=== PATIENT | female | born 1960 | race Caucasian/White ===

== ENCOUNTER 2016-04-07 17:30 | Emergency (ER) | payer OTHER ==
[~2016-04-07] VITALS: Ht 154.9 cm; Wt 57.3 kg
[~2016-04-07 17:30] MED LIST: ALLOPURINOL100 MG PO; ASPIR 8181 M1; ASPIRIN81 M2 PO; Aspirin E.C. PO; DOXYCYCLINE HY100 MG PO; FENTANYL1 EAC4 TD; FLONASE16 G1 BOTH NARES; FLUOXETINE HCL20 MG PO; KEFLEX500 MG PO; LYRICA100 MG PO; LYRICA50 MG PO; MORPHINE SULFAT15 M1 PO; Medrol Dosepak PO; NORTRIPTYLINE H25 MG PO; PERCOCET 10/1 TABLET PO; PLAVIX75 MG; PLAVIX75 MG PO; PRAVACHOL10 MG PO; PROzac PO; TESSALON PERLE100 MG PO; TOPAMAX100 MG PO; TOPAMAX25 MG PO; Topamax PO; VOLTAREN75 MG PO; WELLBUTRIN75 MG PO; Wellbutrin PO; ZITHROMAX250 MG PO; ZYLOPRIM100 MG PO; Zyloprim PO
[2016-04-07] MEDS ORDERED: ZONTIVITY2.08 MG PO (17:53)
[2016-04-07] MEDS ORDERED: ULTRAM50 MG PO (19:09)
[2016-04-07 19:45] VITALS: BP 155/81
== END 2016-04-07 19:45 | disposition home or self-care (01) ==
LOC: EME 17:30 → EXP 17:30
DX: S20.212A Contusion of left front wall of thorax, initial encounter (principal); S00.83XA Contusion of other part of head, initial encounter; Y04.2XXA Assault by strike against or bumped into by another person, initial encounter; I73.9 Peripheral vascular disease, unspecified; Z79.02 Long term (current) use of antithrombotics/antiplatelets; Z79.82 Long term (current) use of aspirin; G89.29 Other chronic pain; Z79.891 Long term (current) use of opiate analgesic; E78.00 Pure hypercholesterolemia, unspecified; F17.200 Nicotine dependence, unspecified, uncomplicated
CPT/HCPCS: 71020; 99281; 99284

== ENCOUNTER 2016-10-05 11:21 | Emergency (ER) | payer OTHER ==
[~2016-10-05] VITALS: Ht 154.9 cm; Wt 62.0 kg
[~2016-10-05 11:21] MED LIST changes: +ULTRAM50 MG PO; +ZONTIVITY2.08 MG PO
[2016-10-05 12:06] LABS: HEMATOCRIT 41.8 % (36.0-46.0); MCH 28.7 PG (29.0-34.0); MCHC 32.5 G/DL (30.0-36.0); MCV 88.2 FL (83-99); PLATELET COUNT 287 K/uL (156-360); RBC DIS.WIDTH-CV 13.2 % (11.8-14.6); RBC DIS.WIDTH-SD 42.5 % (39-53); RED BLOOD COUNT 4.74 M/uL (3.80-5.20); WHITE BLOOD COUNT 13.8 K/uL (4.1-10.2)
[2016-10-05 12:15] LABS: CHLORIDE 110 mEq/L (99-109); POTASSIUM 3.7 mEq/L (3.7-5.4); SODIUM 142 mEq/L (136-147)
[2016-10-05 12:17] LABS: GLUCOSE 91 mg/dL (70-99)
[2016-10-05 12:18] LABS: ANION GAP 7 MEQ/L (2-14)
[2016-10-05 12:21] LABS: GFR ESTIMATE (CALCULATED) > 59 mL/min/
[2016-10-05 12:22] LABS: UREA NITROGEN (BUN) 19 mg/dL (9-23)
[2016-10-05 12:29] LABS: D-DIMER ELISA 0.38 mg/L FEU (< 0.57)
[2016-10-05] MEDS ORDERED: LEVAQUIN750 MG PO (14:54)
[2016-10-05 15:05] VITALS: BP 135/89
== END 2016-10-05 15:06 | disposition home or self-care (01) ==
LOC: EME 11:21
PROVIDERS: Emergency Medicine
DX: J40 Bronchitis, not specified as acute or chronic (principal); I73.9 Peripheral vascular disease, unspecified; Z79.02 Long term (current) use of antithrombotics/antiplatelets; Z79.82 Long term (current) use of aspirin; E78.5 Hyperlipidemia, unspecified; Z90.49 Acquired absence of other specified parts of digestive tract; F17.200 Nicotine dependence, unspecified, uncomplicated
CPT/HCPCS: 71020; 71275; 80048; 85027; 85379; 93005; 99281; 99285; J7030